=== PATIENT | male | born 1975 | race Two or more races ===

== ENCOUNTER 2020-07-30 15:52 | Outpatient (REF) | payer OTHER, SELFPAY ==
[2020-07-30 16:31] LABS: MANUAL DIFF FLAG NO
[2020-07-30 16:34] LABS: Basophils Percent Auto 0.4 % (0-2); Eosinophils Percent Auto 0.6 % (0-4); Hematocrit 40.9 % (42-52); Hemoglobin 14.4 g/dl (14.0-18.0); Imm Gran Abs Auto 0.02 X10*3/uL (0.00-0.03); Imm Gran Pct Auto 0.4 % (0.0-0.4); Lymphocytes Percent Auto 43.6 % (20-40); Mean Corpuscular HGB Conc 35.2 g/dl (31.0-36.0); Mean Corpuscular Hemoglobin 29.6 pg (27.0-33.0); Mean Corpuscular Volume 84.2 fL (80-98); Mean Platelet Volume 10.8 fL (9.4-12.4); Monocytes Absolute Auto 0.3 X10*3/uL (0.1-1.2); Monocytes Percent Auto 7.1 % (2-11); Neutrophils Absolute Auto 2.2 X10*3/uL (2.0-8.3); Neutrophils Percent Auto 47.9 % (45-73); Platelet Count 236 X10*3/uL (160-400); Red Blood Count 4.86 X10*6/uL (4.60-5.80); Red Cell Distribution Width 11.7 % (11.0-16.0); White Blood Count 4.7 X10*3/uL (4.8-10.8)
[2020-07-30 16:37] LABS: Glucose Urine UA >=1000 MG/DL (NEG); Leukocyte Esterase Urine NEG (NEG); Nitrite Urine NEG (NEG); PH 5.5 (5.0-8.0); Urine Blood TRACE (NEG); Urine Ketones 15 MG/DL (NEG); Urine Protein NEG (NEG-TRACE)
[2020-07-30 16:38] LABS: Appearance Urine CLEAR; Color Urine YELLOW
[2020-07-30 16:44] LABS: Bacteria Urine TRACE /LPF; RBC Urine 0-2 /HPF (0); Squamous Epithelial Cell Urine TRACE /LPF; WBC Urine 0 /HPF (0-4)
[2020-07-30 17:00] LABS: Estimated Average Glucose 295 mg/dL; Hemoglobin A1c % 11.9 %
[2020-07-30 17:10] LABS: Microalbum/Creatinine Ratio Ur 32.7 ug/mg cr
[2020-07-30 17:40] LABS: Alanine Aminotransferase 37 U/L (0-40); Albumin Level 4.1 g/dL (3.5-5.0); Alkaline Phosphatase 97 U/L (39-117); Anion Gap 16 (12-20); Aspartate Amino Transferase 17 U/L (5-37); Bilirubin Total 0.4 mg/dL (0.0-1.0); Blood Urea Nitrogen 17 mg/dL (9-16); Carbon Dioxide 22 mmol/L (22-29); Chloride 98 mmol/L (96-108); Estimated Glomerular Filt Rate > 60; Glucose Random 533 mg/dL (60-115); Lipase 40 U/L (8-78); Potassium 4.3 mmol/l (3.3-5.1); Sodium 132 mmol/L (135-145); Total Protein 7.7 g/dL (6.5-8.0)
== END 2020-07-30 15:53 | disposition home or self-care (01) ==
LOC: HO.LAB 15:52
PROVIDERS: PCP Internal Medicine; Visit Provider Internal Medicine
DX: R35.8 Other polyuria (principal); E11.9 Type 2 diabetes mellitus without complications; R10.9 Unspecified abdominal pain
CPT/HCPCS: 36415; 80053; 81001; 82043; 83036; 83690; 85025

== ENCOUNTER 2021-09-07 10:07 | Outpatient (REF) | payer OTHER, SELFPAY ==
[2021-09-07 10:38] LABS: MANUAL DIFF FLAG NO
[2021-09-07 10:59] LABS: Basophils Percent Auto 0.7 % (0-2); Eosinophils Percent Auto 0.5 % (0-4); Hematocrit 42.5 % (42.0-52.0); Hemoglobin 14.1 g/dl (14.0-18.0); Imm Gran Abs Auto 0.02 X10*3/uL (0.00-0.03); Imm Gran Pct Auto 0.3 % (0.0-0.4); Lymphocytes Absolute Auto 2.3 X10*3/uL (1.2-4.9); Lymphocytes Percent Auto 39.5 % (20-40); Mean Corpuscular HGB Conc 33.2 g/dl (31.0-36.0); Mean Corpuscular Hemoglobin 28.7 pg (27.0-33.0); Mean Corpuscular Volume 86.4 fL (80.0-98.0); Mean Platelet Volume 9.8 fL (9.4-12.4); Monocytes Absolute Auto 0.5 X10*3/uL (0.1-1.2); Monocytes Percent Auto 7.8 % (2-11); Neutrophils Percent Auto 51.2 % (45-73); Platelet Count 270 X10*3/uL (160-400); Red Blood Count 4.92 X10*6/uL (4.60-5.80); White Blood Count 5.8 X10*3/uL (4.8-10.8)
[2021-09-07 11:20] LABS: Alanine Aminotransferase 27 U/L (0-40); Albumin Level 4.1 g/dL (3.5-5.0); Alkaline Phosphatase 84 U/L (39-117); Anion Gap 12 (12-20); Aspartate Amino Transferase 17 U/L (5-37); Bilirubin Total 0.6 mg/dL (0.0-1.0); Blood Urea Nitrogen 13 mg/dL (9-16); Calcium 9.5 mg/dL (8.4-10.2); Carbon Dioxide 27 mmol/L (22-29); Chloride 103 mmol/L (96-108); Cholesterol 332 mg/dL; Estimated Glomerular Filt Rate > 60; Glucose Fasting 169 mg/dL (60-99); HDL Cholesterol 35 mg/dL; LDL Cholesterol Calculated 219 mg/dl; Potassium 4.4 mmol/L (3.3-5.1); Sodium 138 mmol/L (135-145); Triglycerides 394 mg/dL
[2021-09-07 11:34] LABS: Creatinine Urine 209.66 mg/dL; Microalbum/Creatinine Ratio Ur 9.5 ug/mg cr
[2021-09-07 11:37] LABS: Estimated Average Glucose 194 mg/dL; Hemoglobin A1c % 8.4 %
== END 2021-09-07 10:08 | disposition home or self-care (01) ==
LOC: HO.LAB 10:07
PROVIDERS: PCP Internal Medicine; Visit Provider Internal Medicine
DX: E11.9 Type 2 diabetes mellitus without complications (principal); E78.00 Pure hypercholesterolemia, unspecified
CPT/HCPCS: 36415; 80053; 80061; 82043; 83036; 85025

== ENCOUNTER 2024-06-20 10:21 | Outpatient (REF) | payer OTHER, SELFPAY ==
[2024-06-20 10:34] LABS: MANUAL DIFF FLAG NO
[2024-06-20 11:37] LABS: Basophils Absolute Auto 0.1 X10*3/uL (0.0-0.2); Basophils Percent Auto 0.8 % (0-2); Eosinophils Percent Auto 0.6 % (0-4); Hematocrit 40.5 % (42.0-52.0); Hemoglobin 13.6 g/dl (14.0-18.0); Imm Gran Abs Auto 0.02 X10*3/uL (0.00-0.03); Imm Gran Pct Auto 0.3 % (0.0-0.4); Lymphocytes Absolute Auto 2.6 X10*3/uL (1.2-4.9); Mean Corpuscular HGB Conc 33.6 g/dl (31.0-36.0); Mean Corpuscular Hemoglobin 29.2 pg (27.0-33.0); Mean Corpuscular Volume 87.1 fL (80.0-98.0); Mean Platelet Volume 10.4 fL (9.4-12.4); Monocytes Absolute Auto 0.4 X10*3/uL (0.1-1.2); Monocytes Percent Auto 5.8 % (2-11); Neutrophils Absolute Auto 3.5 x10*3/uL (2.0-8.3); Neutrophils Percent Auto 53.5 % (45-73); Platelet Count 306 X10*3/uL (160-400); Red Blood Count 4.65 X10*6/uL (4.60-5.80); Red Cell Distribution Width 12.2 % (11.0-16.0); White Blood Count 6.5 X10*3/uL (4.8-10.8)
[2024-06-20 12:04] LABS: Estimated Average Glucose 183 mg/dL; Hemoglobin A1C 222.5464 umol/L; Total Hemoglobin (HGBA1C) 3496.2879 umol/L
[2024-06-20 12:10] LABS: Albumin Level 4.1 g/dL (3.5-5.0); Alkaline Phosphatase 73 U/L (39-117); Anion Gap 11 (12-20); Aspartate Amino Transferase 23 U/L (5-37); Bilirubin Total 0.4 mg/dL (0.0-1.0); Blood Urea Nitrogen 14 mg/dL (9-16); Calcium 9.4 mg/dL (8.4-10.2); Carbon Dioxide 28 mmol/L (22-29); Chloride 102 mmol/L (96-108); Cholesterol 349 mg/dL (<200); Estimated Glomerular Filt Rate > 60; Glucose Fasting 133 mg/dL (60-99); HDL Cholesterol 44 mg/dL (>40); LDL Cholesterol Calculated 258 mg/dL (<100); Potassium 3.9 mmol/L (3.3-5.1); Sodium 137 mmol/L (135-145); Total Protein 7.2 g/dL (6.5-8.0); Triglycerides 239 mg/dL (<150)
[2024-06-20 12:14] LABS: Creatinine Urine 127.69 mg/dL; Microalbum/Creatinine Ratio Ur 12.5 ug/mg cr (<30)
[2024-06-20 12:26] LABS: Alanine Aminotransferase 26 U/L (0-40)
== END 2024-06-20 10:22 | disposition home or self-care (01) ==
LOC: HO.LAB 10:21
PROVIDERS: PCP Internal Medicine; Visit Provider Internal Medicine
DX: E11.9 Type 2 diabetes mellitus without complications (principal); E78.00 Pure hypercholesterolemia, unspecified
CPT/HCPCS: 36415; 80053; 80061; 82043; 82570; 83036; 85025

== ENCOUNTER 2024-08-04 10:56 | Outpatient (REF) | payer OTHER, SELFPAY ==
--- NOTE | ~2024-08-04 | XR_ITS ---
EXAMINATION: XR KNEE, RIGHT CLINICAL INFORMATION: M25.561 - Pain in right knee COMPARISON: None available. TECHNIQUE: Four views of the right knee. FINDINGS: Joint space narrowing involving the medial compartment without seated sclerosis and the medial tibial plateau and mediofemoral condyle. No acute cortical disruption or malalignment. No suprapatellar bursa joint effusion. There is a 9 mm blastic lesion in the medial proximal metaphysis of the right tibia. There is a well-corticated 4 mm calcification in the prepatellar soft tissues. XR/XR knee RT 3V IMPRESSION: Medial compartment osteoarthrosis without acute fracture or dislocation. Probable prior trauma, prepatellar soft tissues. Probable bony island, proximal metaphysis right tibia. Electronically signed by: Emery Urbina MD 08/10/2024 09:09 AM [facility]
== END 2024-08-04 10:57 | disposition home or self-care (01) ==
LOC: HO.HOSX 10:56
PROVIDERS: Visit Provider Orthopaedic Surgery
DX: M25.561 Pain in right knee (principal)
CPT/HCPCS: 73562

== ENCOUNTER 2024-08-04 14:52 | Outpatient (AMB) | payer OTHER, SELFPAY ==
--- NOTE | 2024-08-04 14:58 | A.OFFVIS_ITS ---
Intake Visit Reasons: Right knee pain and giving way Intake Note: Goyo is a 49 year old male who presents with complaints of progressively worsening right knee pain and giving way. He describes his pain as sharp and severe in nature. Most of the pain is along the medial aspect of his knee. The patient states that twisted his knee approximately 1 year ago. His symptoms have gotten worse since that time. He has failed the last 6 weeks of conservative treatment which has included physical therapy exercises, Tylenol and anti-inflammatory medicines. He states that his right knee will give out several times per day. He has also tried hot and cold compresses as well as pain patches which gave him minimal relief. He did try wearing a knee brace which seemed to aggravate his pain. 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 Physical Exam Const Other: Well-nourished well-developed very friendly male awake alert and oriented x3 in no acute distress Extrem Other: Bilateral lower extremity examination shows good capillary refill, no skin lesions noted, normal sensation light touch Right knee examination shows a minimal effusion, minimal crepitus with range of motion, tenderness along his medial joint line, positive Alex's test, no instability Results Reviewed Results Reviewed: Standing full weight-bearing x-rays of the patient's right knee show mild diffuse joint space narrowing, no acute bony abnormalities Assessment & Plan Assessment & Plan (1) Tear of medial meniscus of right knee: Code(s): S83.241A - Other tear of medial meniscus, current injury, right knee, initial encounter Category: Medical Plan Mr. Elliott Rodriguez presents with progressively worsening right knee pain and mechanical symptoms most likely due to a tear of his medial meniscus. Thus, I will send the patient for an MRI of his right knee for further evaluation. I will see him back once the MRI is completed to discuss the findings and treatment options. Feel free to call me at any time should questions regarding his orthopedic management arise. Thank you very much for asking me to see this very friendly gentleman. I spent 20 minutes in reviewing the patient's records and imaging studies, seeing the patient and documenting in the medical record. Orders: Orders MR knee RT wo con Today S83.241A - Other tear of medial meniscus, current injury, right knee, initial encounter XR knee RT 3V 08/04/24 M25.561 - Pain in right knee Coding Level of Care Code New Pt Level 3 (54080) Complex EM visit Add On G2211 Diagnoses Tear of medial meniscus of right knee S83.241A
== END 2024-08-04 15:21 | disposition home or self-care (01) ==
PROVIDERS: PCP Internal Medicine; Visit Provider Orthopaedic Surgery
DX: S83.241A Other tear of medial meniscus, current injury, right knee, initial encounter (principal)
CPT/HCPCS: 99203

== ENCOUNTER → 2024-08-27 09:48 | Outpatient (BNV) | payer OTHER, SELFPAY | PROVIDERS: PCP Internal Medicine; Visit Provider Radiology Diagnostic Radiology | DX: S83.241A Other tear of medial meniscus, current injury, right knee, initial encounter (principal) | CPT/HCPCS: 73721 ==

== ENCOUNTER 2024-08-27 09:49 | Outpatient (REF) | payer OTHER, SELFPAY ==
--- NOTE | ~2024-08-27 | MR_ITS ---
EXAMINATION: MRI RIGHT KNEE WITHOUT CONTRAST HISTORY: S83.241A - Other tear of medial meniscus, current injury, right knee COMPARISON: Correlation is made to plain films of the right knee dated 08/04/2024. TECHNIQUE: Coronal T1 and fat-suppressed proton density, sagittal proton density and fat-suppressed proton density, and axial fat suppressed T2 weighted MR images of the right knee were obtained. FINDINGS: Bone marrow: There is a hypointense focus in the proximal tibial metaphysis consistent with a bone island is noted on plain film. There is a small focus of marrow edema involving the bilateral patella with a defect of the overlying cartilage, consistent with osteochondral injury. Joint effusion: There is no significant suprapatellar joint effusion. Salcido's cyst: There is no Salcido's cyst. Articular cartilage: There is mild thinning of the cartilage involving the medial compartment. Muscles: There is increased T2 signal intensity within and expansion of the proximal tendon of the medial head of the gastrocnemius muscle, consistent with a sprain versus partial tear (series 10, images 8-10). Anterior cruciate ligament: Intact Posterior cruciate ligament: Intact Medial collateral ligament: Intact Lateral collateral ligament: Intact Medial meniscus: There is a radially oriented focus of increased T2 signal intensity in the body of the medial meniscus which contacts the superior and inferior joint surfaces, consistent with a radial tear. There is an additional horizontal tear of the posterior horn. This contacts the inferior joint surface. Lateral meniscus: Intact Popliteus tendon: Intact Quadriceps tendon: Intact Patellar tendon: Intact Patellar retinacula: Intact MR/MR knee RT wo con IMPRESSION: 1. Mild osteoarthritis of the medial compartment. 2. Osteochondral injury involving the lateral patellar facet. 3. Radial tear of the body of the medial meniscus. Horizontal tear of the posterior horn. 4. Sprain versus partial tear of the proximal tendon of the medial gastrocnemius muscle. Electronically signed by: Graham Gongora MD 08/29/2024 08:03 AM [facility]
== END 2024-08-27 09:50 | disposition home or self-care (01) ==
LOC: HO.MRI 09:49
PROVIDERS: PCP Internal Medicine; Visit Provider Orthopaedic Surgery
DX: S83.241A Other tear of medial meniscus, current injury, right knee, initial encounter (principal)
CPT/HCPCS: 73721

== ENCOUNTER 2024-09-06 14:25 | Outpatient (AMB) | payer OTHER, SELFPAY ==
--- NOTE | 2024-09-06 14:31 | MHC.OFFVIS ---
Vital Signs 09/06/24 14:36 Height 5 ft 11 in Weight 323 lb BMI 45.0 Intake Visit Reasons: OV-Right knee MRI reivew Intake Note: Goyo is a 49 year old male who presents today for a right knee MRI review. The patient describes his right knee pain as sharp in nature. He states that his right knee will give out several times per day. He has tried Tylenol and anti-inflammatory medicines which gave him minimal relief. He has done physical therapy exercises which aggravated his pain. 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 Physical Exam Vital Signs: BMI result Body Mass Index 45.0 Const Other: Well-nourished well-developed very friendly male awake alert and oriented x3 in no acute distress Extrem Other: Bilateral lower extremity examination shows good capillary refill, no skin lesions noted, normal sensation light touch Right knee examination shows a minimal effusion, mild crepitus with range of motion, tenderness along his medial joint line, positive Alex's test, no instability Results Reviewed Results Reviewed: Standing full weight-bearing x-rays of the patient's right knee show mild diffuse joint space narrowing, no acute bony abnormalities MRI of the patient's right knee shows mild diffuse degenerative changes as well as a medial meniscus tear Assessment & Plan Assessment & Plan (1) Tear of medial meniscus of right knee: Code(s): S83.241A - Other tear of medial meniscus, current injury, right knee, initial encounter Category: Medical Plan Mr. Elliott Rodriguez presents with progressively worsening right knee pain and mechanical symptoms due to a medial meniscus tear. I had a lengthy discussion with the patient regarding the treatment options. At this point he appears to be failing continued non operative treatments. He is considering undergoing right knee arthroscopic surgery later this year. He will contact my office to pick a surgery date if he chooses to do so. Surgery will most likely involve right knee arthroscopic partial medial meniscectomy. Feel free to call me at any time should questions regarding his orthopedic management arise. I spent 20 minutes in reviewing the patient's records and imaging studies, seeing the patient and documenting in the medical record. Coding Level of Care Code Est Pt Level 3 (00086) Complex EM visit Add On G2211 Diagnoses Tear of medial meniscus of right knee S83.241A
[2024-09-06 14:36] VITALS: BMI 45.0
== END 2024-09-06 14:44 | disposition home or self-care (01) ==
PROVIDERS: PCP Internal Medicine; Visit Provider Orthopaedic Surgery
DX: S83.241A Other tear of medial meniscus, current injury, right knee, initial encounter (principal)
CPT/HCPCS: 99213

== ENCOUNTER → 2024-09-06 14:25 | Outpatient (BNVA) | payer OTHER, SELFPAY | PROVIDERS: PCP Internal Medicine; Visit Provider Orthopaedic Surgery ==

== ENCOUNTER 2024-10-12 11:50 | Outpatient (REF) | payer OTHER, SELFPAY | END 2024-10-12 11:51 | disposition home or self-care (01) | LOC: HO.HOSX 11:50 | PROVIDERS: Visit Provider Orthopaedic Surgery | DX: Z13.89 Encounter for screening for other disorder (principal) ==

== ENCOUNTER 2024-10-13 08:24 | Outpatient (REF) | payer OTHER, SELFPAY ==
--- NOTE | ~2024-10-13 | XR_ITS ---
CLINICAL HISTORY: M25.511 - Pain in right shoulder 2 view right shoulder Comparison: None Findings: Bones intact. No dislocations. No significant arthritic change. No erosions. No radiopaque foreign body. IMPRESSION: 1. No acute findings This document has been electronically signed by: Raj Garcia MD on 10/14/2024 08:13:26
--- NOTE | ~2024-10-13 | XR_ITS ---
CLINICAL HISTORY: M25.512 - Pain in left shoulder 2 view left shoulder Comparison: None Findings: No fractures or dislocations. No significant loss of joint space or osteophytes. No erosions. No radiopaque foreign body. IMPRESSION: 1. No acute findings This document has been electronically signed by: Raj Garcia MD on 10/14/2024 08:13:20
== END 2024-10-13 08:25 | disposition home or self-care (01) ==
LOC: HO.HOSX 08:24
PROVIDERS: Visit Provider Orthopaedic Surgery
DX: M25.512 Pain in left shoulder (principal); M25.511 Pain in right shoulder; M25.312 Other instability, left shoulder
CPT/HCPCS: 73030

== ENCOUNTER 2024-10-13 09:27 | Outpatient (AMB) | payer OTHER, SELFPAY ==
[2024-10-13 09:31] VITALS: BMI 45.0
--- NOTE | 2024-10-13 09:31 | MHC.OFFVIS ---
Vital Signs 10/13/24 09:31 Height 5 ft 11 in Weight 323 lb BMI 45.0 Intake Visit Reasons: Newprob-B/L shoulder pain, Left shoulder pain and weakness Intake Note: Goyo is a 49 year right hand dominant male who presents with complaints of progressively worsening left shoulder pain and weakness. The patient also has intermittent pain in his right shoulder. He states that his right shoulder pain is tolerable to him. His left shoulder pain and weakness have gotten worse over the last year in spite of continued non operative treatments. He has failed the last 3 months of conservative treatment which has included physical therapy exercises, Tylenol and anti-inflammatory medicines as well as topical spray. The patient reports difficulty lifting his left hand above shoulder height. He has had injections in the past which gave him minimal relief. 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 Physical Exam Vital Signs: BMI result Body Mass Index 45.0 Const Other: Well-nourished well-developed very friendly male awake alert and oriented x3 in no acute distress Extrem Other: Bilateral upper extremity examination shows good capillary refill, no skin lesions noted, normal sensation light touch Left shoulder examination shows decreased range of motion when compared to his right shoulder, 4+ out of 5 strength with supraspinatus testing, positive impingement signs, tenderness over his acromioclavicular joint, no instability Left shoulder examination shows 4+ out of 5 strength with supraspinatus testing, positive impingement signs, tenderness over his acromioclavicular joint, no instability Results Reviewed Results Reviewed: X-rays of the patient's bilateral shoulder show severe acromioclavicular joint narrowing, type 3 acromion, no acute bony abnormalities Assessment & Plan Assessment & Plan (1) Rotator cuff insufficiency of left shoulder: Code(s): M25.312 - Other instability, left shoulder Category: Medical (2) Right shoulder pain: Code(s): M25.511 - Pain in right shoulder Category: Medical (3) Left shoulder pain: Code(s): M25.512 - Pain in left shoulder Category: Medical Plan Mr. Elliott Rodriguez presents with progressively worsening left shoulder pain weakness due to impingement syndrome and possible rotator cuff tearing. Thus, I will send the patient for an MRI of his left shoulder for further evaluation. I will see him back once to discuss the findings and treatment options. Feel free to call time should questions regarding his orthopedic management arise. I spent 20 minutes in reviewing the patient's records and imaging studies, seeing the patient and documenting in the medical record. Orders: Orders XR shoulder LT min 2V Today M25.512 - Pain in left shoulder XR shoulder RT min 2V Today M25.511 - Pain in right shoulder MR shoulder LT wo con Today M25.312 - Other instability, left shoulder Coding Level of Care Code Est Pt Level 3 (56040) Complex EM visit Add On G2211 Diagnoses Rotator cuff insufficiency of left shoulder M25.312 Right shoulder pain M25.511 Left shoulder pain M25.512
== END 2024-10-13 10:08 | disposition home or self-care (01) ==
LOC: HO.HOS 09:27
PROVIDERS: PCP Internal Medicine; Visit Provider Orthopaedic Surgery
DX: M25.312 Other instability, left shoulder (principal); M25.511 Pain in right shoulder; M25.512 Pain in left shoulder
CPT/HCPCS: 99213

== ENCOUNTER → 2024-10-13 09:37 | Outpatient (BNV) | payer OTHER, SELFPAY | PROVIDERS: Visit Provider Specialist | DX: M25.511 Pain in right shoulder (principal); M25.512 Pain in left shoulder | CPT/HCPCS: 73030 ==

== ENCOUNTER 2024-11-06 10:22 | Outpatient (REF) | payer OTHER, SELFPAY ==
--- NOTE | ~2024-11-06 | MR_ITS ---
CLINICAL HISTORY: M25.312 - Other instability, left shoulder MR left shoulder Comparison: DX - XR SHOULDER LT MIN 2V - 10/13/24 09:37 EDT Findings: No fracture or dislocation of the osseous structures. There is a mild amount of bone marrow edema at the acromioclavicular joint. There is mild acromioclavicular joint space narrowing and osteophytosis with subchondral cystic change. There is edema in the soft tissues adjacent to the acromioclavicular joint in between acromioclavicular joint and humeral head. No joint effusion or fluid in the subacromial/subdeltoid bursa. There is a small amount of fluid in the subcoracoid bursa. There is increased signal in the supraspinatus and subscapularis tendons without tear, retraction or muscular atrophy. Infraspinatus and teres minor are unremarkable. There is increased signal and irregularity in the superior labrum from anterior to posterior. The bicipital labral anchor is not well seen and may be torn. The long head of the biceps tendon is torn and retracted. The coracoacromial and coracohumeral ligaments are intact. Cutaneous and subcutaneous tissues are normal. The quadrilateral space is unremarkable. Impression: Bone marrow edema at the acromioclavicular joint could be secondary to degenerative change. There is also edema in the soft tissues adjacent to the acromioclavicular joint. Correlate clinically for history of trauma to this region. Small amount of fluid in the subcoracoid bursa. Supraspinatus and subscapularis tendinopathy. Increased signal and irregularity in the superior labrum from anterior to posterior may indicate a tear. Extension into the bicipital labral anchor could be considered. Tear of the long head of the biceps tendon with retraction. This document has been electronically signed by: Rachel Frost MD on 11/07/2024 22:10:15
== END 2024-11-06 10:23 | disposition home or self-care (01) ==
LOC: HO.MRI 10:22
PROVIDERS: Visit Provider Orthopaedic Surgery
DX: M25.312 Other instability, left shoulder (principal)
CPT/HCPCS: 73221

== ENCOUNTER → 2024-11-06 10:28 | Outpatient (BNV) | payer OTHER, SELFPAY | PROVIDERS: Visit Provider Radiology Diagnostic Radiology | DX: M25.312 Other instability, left shoulder (principal) | CPT/HCPCS: 73221 ==

== ENCOUNTER 2024-11-23 09:35 | Outpatient (AMB) | payer OTHER, SELFPAY ==
--- NOTE | 2024-11-23 09:48 | MHC.OFFVIS ---
Vital Signs 11/23/24 09:49 Height 5 ft 11 in Weight 323 lb BMI 45.0 Handedness Right Intake Visit Reasons: OV- Left shoulder MRI review, Right shoulder pain and weakness Intake Note: Goyo is a 49 year old right hand dominant male who presents with complaints of progressively worsening bilateral shoulder pains and weakness. The patient describes his pains as sharp in nature. His symptoms have gotten worse over the last year in spite of continued non operative treatments. At this point his right shoulder symptoms are worse than are his left. He reports weakness when lifting his right hand above shoulder height. He has failed the last 6 weeks of conservative treatment which has included physical therapy exercises, a home exercise program, Tylenol and anti-inflammatory medicines. He has had injections in the past which gave him minimal relief. 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 Physical Exam Vital Signs: BMI result Body Mass Index 45.0 Const Other: Well-nourished well-developed very friendly male awake alert and oriented x3 in no acute distress Extrem Other: Bilateral upper extremity examination shows good capillary refill, no skin lesions noted, normal sensation light touch Bilateral shoulder examination shows forward flexion to 160 degrees, external rotation to 40 degrees, internal rotation to 40 degrees, 4+ out of 5 strength with supraspinatus testing, positive impingement signs, tenderness over his acromioclavicular joint, no instability Results Reviewed Results Reviewed: X-rays of the patient's right shoulder taken previously show severe acromioclavicular joint narrowing, a type 3 acromion, no acute bony abnormalities MRI of the patient's left shoulder show severe acromioclavicular joint narrowing, a type 3 acromion, signal change within the supraspinatus tendon most likely due to adhesive capsulitis Assessment & Plan Assessment & Plan (1) Rotator cuff insufficiency of right shoulder: Code(s): M25.311 - Other instability, right shoulder Category: Medical Plan Mr. Elliott Rodriguez presents with left shoulder pain and stiffness due to impingement syndrome, acromioclavicular joint arthritis and adhesive capsulitis. He also has right shoulder pain and weakness due to impingement syndrome and possible rotator cuff tearing. Thus, I will send the patient for an MRI of his right shoulder for further evaluation. I will see him back once the MRI is completed to discuss the findings and treatment options. He will continue with his range of motion exercises in the meantime. I spent 21 minutes in reviewing the patient's records and imaging studies, seeing the patient and documenting in the medical record. Orders: Orders MR shoulder RT wo con Today M25.311 - Other instability, right shoulder Coding Level of Care Code Est Pt Level 3 (82493) Complex EM visit Add On G2211 Diagnoses Rotator cuff insufficiency of right shoulder M25.311
[2024-11-23 09:49] VITALS: BMI 45.0
== END 2024-11-23 10:08 | disposition home or self-care (01) ==
LOC: HO.HOS 09:36
PROVIDERS: Visit Provider Orthopaedic Surgery
DX: M25.311 Other instability, right shoulder (principal)
CPT/HCPCS: 99213

== ENCOUNTER → 2024-11-23 09:35 | Outpatient (BNVA) | payer OTHER, SELFPAY | PROVIDERS: Visit Provider Orthopaedic Surgery ==

== ENCOUNTER → 2024-11-30 07:46 | Outpatient (BNV) | payer OTHER, SELFPAY | PROVIDERS: Visit Provider Radiology Diagnostic Radiology | DX: M75.101 Unspecified rotator cuff tear or rupture of right shoulder, not specified as traumatic (principal); M75.21 Bicipital tendinitis, right shoulder | CPT/HCPCS: 73221 ==

== ENCOUNTER 2024-11-30 07:48 | Outpatient (REF) | payer OTHER, SELFPAY ==
--- NOTE | ~2024-11-30 | MR_ITS ---
CLINICAL HISTORY: M25.311 - Other instability, right shoulder MR right shoulder without gadolinium Comparison: None Findings: No acute fractures. No pathologic bone lesions. There are relatively severe degenerative changes of the acromioclavicular joint associated with bony productive changes. Type II acromion without downsloping. No fluid is seen within the subacromial subdeltoid bursa. There is a rim rent tear at the insertion of the supraspinatus tendon. There is tendinosis of the long head of the biceps and infraspinatus tendons. No tears of the glenoid labrum. IMPRESSION: 1. There is a small rim rent tear at the insertion of the supraspinatus tendon. 2. There is tendinosis of the long head of the biceps tendon and of the infraspinatus tendon. This document has been electronically signed by: Leonel Lewis MD on 11/30/2024 14:09:24
== END 2024-11-30 07:49 | disposition home or self-care (01) ==
LOC: HO.MRI 07:48
PROVIDERS: Visit Provider Orthopaedic Surgery
DX: M25.311 Other instability, right shoulder (principal)
CPT/HCPCS: 73221

== ENCOUNTER 2024-12-22 09:04 | Outpatient (AMB) | payer OTHER, SELFPAY ==
--- NOTE | 2024-12-22 09:09 | MHC.OFFVIS ---
Vital Signs 12/22/24 09:10 Height 5 ft 11 in Weight 323 lb BMI 45.0 Intake Visit Reasons: OV- Right shoulder MRI review Intake Note: Goyo is a 49 year old right hand dominant male who presents with complaints of progressively worsening bilateral shoulder pains and weakness, right greater than left. The patient describes his pains as sharp in nature. His symptoms have gotten worse over the last year in spite of continued non operative treatments. At this point his right shoulder symptoms are worse than are his left. He reports weakness when lifting his right hand above shoulder height. He has failed the last 6 weeks of conservative treatment which has included physical therapy exercises, a home exercise program, Tylenol and anti-inflammatory medicines. He has had injections in the past which gave him minimal relief. 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 Physical Exam Vital Signs: BMI result Body Mass Index 45.0 Const Other: Well-nourished well-developed very friendly male awake alert and oriented x3 in no acute distress Extrem Other: Bilateral upper extremity examination shows good capillary refill, no skin lesions noted, normal sensation light touch Right shoulder examination shows decreased range of motion when compared to his left shoulder, 4+ out of 5 strength with supraspinatus testing, positive impingement signs, tenderness over his acromioclavicular joint, no instability Results Reviewed Results Reviewed: MRI of the patient's right shoulder show severe acromioclavicular joint narrowing, a type 3 acromion, signal change within the supraspinatus tendon due to rotator cuff tendinosis versus a small tear Assessment & Plan Assessment & Plan (1) Impingement of right shoulder: Code(s): M25.811 - Other specified joint disorders, right shoulder Category: Medical Plan Mr. Elliott Rodriguez presents with bilateral shoulder pains, right greater than left, due to acromioclavicular joint arthritis, impingement syndrome and possible rotator cuff tearing. I had a lengthy discussion with the patient regarding the treatment options. At this point he has failed continued non operative treatments. The risks and benefits of right shoulder surgery were discussed at length with the patient. The patient wished to proceed. Surgery will involve right shoulder arthroscopic distal clavicle excision, right shoulder arthroscopic acromioplasty, possible right shoulder mini open rotator cuff repair showed a full-thickness tear be found at the time of his surgery. The patient will contact my office to pick a surgery date when he is ready to do so. He will continue with his activity modifications in the meantime. Feel free to call me at any time should questions regarding his orthopedic management arise. I spent 20 minutes in reviewing the patient's records and imaging studies, seeing the patient and documenting in the medical record. Coding Level of Care Code Est Pt Level 3 (62471) Complex EM visit Add On G2211 Diagnoses Impingement of right shoulder M25.811
[2024-12-22 09:10] VITALS: BMI 45.0
== END 2024-12-22 09:25 | disposition home or self-care (01) ==
LOC: HO.HOS 09:05
PROVIDERS: Visit Provider Orthopaedic Surgery
DX: M25.811 Other specified joint disorders, right shoulder (principal)
CPT/HCPCS: 99213

== ENCOUNTER 2025-04-20 18:59 | Emergency (ER) | payer OTHER, SELFPAY ==
--- NOTE | ~2025-04-20 | XR_ITS ---
CLINICAL HISTORY: congestion, cough 2 view chest x-ray Comparison: None provided Findings: The lungs are clear. Normal size heart. No acute fracture. IMPRESSION: 1. No acute findings. This document has been electronically signed by: Ramon Pedroza MD on 04/20/2025 20:43:32
[2025-04-20 19:26] VITALS: BP 124/73; PULSE 76; RESP 20; TEMP 36.6; O2SAT 96; BMI 42.1
--- NOTE | 2025-04-20 19:38 | ED_ITS ---
HPI - General Adult General Chief complaint: General Medical Stated complaint: coughing, difficulty breathing Time Seen by Provider: 04/20/25 23:34 Source: patient and family Mode of arrival: ambulatory Limitations: no limitations History of Present Illness ED Provider: Dr. Sushma Salguero HPI narrative: Patient comes to the emergency room complaining of cough since yesterday, sputum production, patient states that he has been coughing so much that his bilateral sides of the chest and back hurt only with coughing, denies fever chills. Also, patient reports an abrasion to the left salazar, occurred 1 week ago after falling. Related Data Home Medications ?Medication ?Instructions ?Recorded ?Confirmed glipizide 10 mg tablet, extended 10 mg PO BID 08/04/24 12/22/24 release 24 hr metformin 500 mg tablet 500 mg PO BID 08/04/2412/22 Previous Rx's ?Medication ?Instructions ?Recorded codeine 7.5 mg-guaifenesin 225 5 ml PO Q6H PRN cough # 473 mL 04/20/25 mg/5 mL oral liquid bacitracin 500 unit/gram topical 1 appl topical TID #2 8 grams 04/21/25 ointment Allergies Allergy/AdvReac Type Severity Reaction Status Date / Time No Known Allergies (No Known Allergy Verified 04/20/25 19:31 Allergies*) Review of Systems 2 Review of Systems: Constitutional : No Weight loss, No Fever, No Chills, No Night Sweats, No Fatigue, No Malaise ENT/Mouth : No Hearing loss, No Ear Pain, No Nasal Congestion, No Sinus Pain, No Hoarseness, No sore throat, No Rhinorrhea, No Swallowing Difficulty Eyes: No Eye Pain, No Swelling, No Redness, No Foreign Body, No Discharge, No Vision Changes Cardiovascular : No Chest Pain, No SOB, No Dyspnea on Exertion, No Orthopnea, No Edema, No Palpitations Respiratory : Complaining of productive cough, no wheezing, complaining of chest wall pain bilaterally and bilateral back pain only with coughing Gastrointestinal : No Nausea, No Vomiting, No Diarrhea, No Constipation, No abdominal Pain, No Hematochezia, No Melena Genitourinary : no irregular bleeding, No Dysuria, No Urinary Frequency, No Hematuria, No Urinary Incontinence, No Urgency, No Flank Pain, No Urinary Flow Changes, No Hesitancy Musculoskeletal : No joint pain, No Myalgias, No Joint Swelling Skin : No Skin Lesions, No rash Neuro : No Weakness, No Numbness, No Paresthesias, No Loss of Consciousness, No Dizziness, No Headache Psych : No Anxiety/Panic, No Depression, No SI/HI/AH/VH, No Social Issues, Heme/Lymph: No Bruising, No Bleeding,No Lymphadenopathy Endocrine : No Polyuria, No Polydipsia, No Temperature Intolerance [facility] Social History Social History Patient Tobacco Use Status: Current someday Tobacco user e-Cigarette/Vaping Use: Currently Using Advance Directives: No Advance Directives Information Provided: No Do you have a plan to hurt others: No Plan Current occupational status: employed 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 Oriented X3. No acute distress. Eyes: Pupils equal, round and reactive to light. ENT: Pharynx normal. Neck: Normal inspection. Neck supple. No lymph nodes noted. No crepitus CVS: Normal heart rate and rhythm. Pulses normal. Normal S1 and S2 Respiratory: No respiratory distress. Breath sounds normal. No Wheezing. No rales Abdomen: Soft and nontender. No rigidity. No distention. Skin: Skin warm and dry. Normal skin color. Normal skin turgor. Patient has a healing abrasion to the left salazar proximally 3 cm x 3 cm, no surrounding erythema Extremities: No lower extremity edema. No Lacerations. No Rash. Patient is able to flex and extend the left knee, no joint effusion, the patient is ambulatory Neuro: Oriented X 3. No motor deficit. No sensory deficit. Moving all extremities. No slurred speech. CN 2 through 12 grossly intact Psych: calm, cooperative, normal affect Vital Signs: Vital Signs - 24 hr 04/20/25 19:26 04/20/25 23:12 Temperature 97.8 F 98.4 F Pulse Rate 76 59 Respiratory Rate 20 20 Blood Pressure 124/73 123/75 Pulse Oximetry 96 99 Oxygen Delivery Method Room Air Room Air BMI result Body Mass Index 42.1 Course Course Course Narrative: This is an RME: Additional HPI, ROS, PE not included below will be deferred to primary provider. RME assessment and note performed by: Tali Hein PA-C This is a [id number] who presents to the ER with complaints of cough with green phlegm, chest pain, bilateral ear discomfort, and headache. He also reports that he fell while pushing a car several days ago. Plan: Labs, EKG, chest x-ray, viral swabs, further ER evaluation needed. Medical Decision Making Medical Decision Making [facility] Narrative: My interpretation of labs: No significant abnormality in patient's hematology or chemistry, LFTs and troponin within normal limits, serology negative for influenza and RSV Chest x-ray does not show any acute abnormality. Discussed the physical exam with the patient, respiratory stephen, patient likely has a viral URI. No signs of pneumonia, antibiotics are not indicated. Due to the musculoskeletal pain from coughing, I discussed with the patient that he can take a cough syrup with codeine, discussed with the patient to not drive or use machinery/go to work after taking this medication since it may make him feel drowsy. Patient agrees with plan. Also discussed with the patient to keep it away from children and pets. Patient is ambulatory, able to flex and extend the knee, no surrounding erythema or pain the eschar itself looks a little yellow, questionably a mild infection versus serosanguineous discharge, does not seem to be pus Differential Diagnosis Differential Diagnoses: The differential diagnosis associated with the presentation includes (URI infection, COVID, flu, bronchitis) Lab Data [facility] Lab Attestation statement: I reviewed the patient's lab results. 04/20/25 20:02 04/20/25 20:02 Labs: Lab Results 04/20/25 Range/Units 20:02 WBC 9.2 (4.8-10.8) X10*3/uL RBC 4.54 L (4.60-5.80) X10*6/uL Hgb 13.6 L (14.0-18.0) g/dl Hct 39.6 L (42.0-52.0) % MCV 87.2 (80.0-98.0) fL MCH 30.0 (27.0-33.0) pg MCHC 34.3 (31.0-36.0) g/dl RDW 12.1 (11.0-16.0) % Plt Count 268 (160-400) X10*3/uL MPV 9.8 (9.4-12.4) fL Immature Gran % (Auto) 0.3 (0.0-0.4) % Neut % (Auto) 66.6 (45-73) % Lymph % (Auto) 24.8 (20-40) % [place] % (Auto) 7.0 (2-11) % Eos % (Auto) 0.8 (0-4) % Baso % (Auto) 0.5 (0-2) % Lymph # (Auto) 2.3 (1.2-4.9) X10*3/uL [place] # (Auto) 0.7 (0.1-1.2) X10*3/uL Eos # (Auto) 0.1 (0.0-0.4) X10*3/uL Baso # (Auto) 0.1 (0.0-0.2) X10*3/uL Abs Immat Gran (auto) 0.03 (0.00-0.03) X10*3/uL Absolute Neuts (auto) 6.2 (2.0-8.3) x10*3/uL Absolute Nucleated RBC 0.000 (0.0-0.012) X10*3/uL Nucleated RBC % (auto) 0.0 (0.0-0.2) /100WBC Sodium 144 (135-145) mmol/L Potassium 5.2 H D (3.3-5.1) mmol/L Chloride 109 H (96-108) mmol/L Carbon Dioxide 29 (22-29) mmol/L Anion Gap 11 L (12-20) BUN 14 (9-16) mg/dL Creatinine 0.84 (0.5-1.4) mg/dL Estim Creat Clear Calc 150.4 Estimated GFR > 60 Random Glucose 139 H (60-115) mg/dL Calcium 9.3 (8.4-10.2) mg/dL Magnesium 2.2 (1.6-2.6) mg/dL Total Bilirubin 0.5 (0.0-1.0) mg/dL Direct Bilirubin 0.2 (0.0-0.5) mg/dL AST 24 (5-37) U/L ALT 33 (0-40) U/L Alkaline Phosphatase 94 (39-117) U/L Troponin I High Sens < 2.7 (<3.5-35.0) ng/L Total Protein 6.9 (6.5-8.0) g/dL Albumin 4.1 (3.5-5.0) g/dL COVID-19 (DAVID) Negative (Negative) COVID-19 Clin Com See Note Influenza Type A (BERNABE) Negative (Negative) Influenza Type B (BERNABE) Negative (Negative) Influenza A & B Note See Note Independent Interpretation I performed an independent interpretation of an: Plain X-Ray Radiology Impression Discussion of test interpretation with radiology: I have reviewed the radiologist's reading. Radiologist Impression: The lungs are clear. Normal size heart. No acute fracture. IMPRESSION: 1. No acute findings. Discharge Plan Discharge Clinical Impression: Abrasion, Bronchitis Patient Disposition: Home, Self-Care Instructions: Acute Bronchitis (ED), Abrasion (ED) Additional Instructions: Please follow-up with your primary care physician tomorrow. If you have any worsening or new symptoms, please return to the emergency room or call 911 Prescriptions: New codeine-guaifenesin 7.5-225 mg/5 mL liquid 5 ml PO Q6H PRN (Reason: cough) Qty: 473 0RF bacitracin 500 unit/gram ointment 1 appl topical TID Qty: 28 0RF No Action glipizide 10 mg tablet extended release 24hr 10 mg PO BID metformin 500 mg tablet 500 mg PO BID Stand Alone Forms: Work/School Release Print Language: Tajik
[2025-04-20 20:06] LABS: MANUAL DIFF FLAG NO
[2025-04-20 20:17] LABS: Hematocrit 39.6 % (42.0-52.0); Hemoglobin 13.6 g/dl (14.0-18.0); Imm Gran Abs Auto 0.03 X10*3/uL (0.00-0.03); Imm Gran Pct Auto 0.3 % (0.0-0.4); Lymphocytes Absolute Auto 2.3 X10*3/uL (1.2-4.9); Mean Corpuscular HGB Conc 34.3 g/dl (31.0-36.0); Mean Corpuscular Hemoglobin 30.0 pg (27.0-33.0); Mean Corpuscular Volume 87.2 fL (80.0-98.0); NRBC Abs Auto 0.000 X10*3/uL (0.0-0.012); NRBC Pct Auto 0.0 /100WBC (0.0-0.2); Platelet Count 268 X10*3/uL (160-400); Red Blood Count 4.54 X10*6/uL (4.60-5.80); White Blood Count 9.2 X10*3/uL (4.8-10.8)
[2025-04-20 20:21] LABS: COVID-19 Test Negative (Negative); IDNOW Serial# 6674DD1D
[2025-04-20 20:23] LABS: Alanine Aminotransferase 33 U/L (0-40); Albumin Level 4.1 g/dL (3.5-5.0); Alkaline Phosphatase 94 U/L (39-117); Anion Gap 11 (12-20); Aspartate Amino Transferase 24 U/L (5-37); Blood Urea Nitrogen 14 mg/dL (9-16); Calcium 9.3 mg/dL (8.4-10.2); Carbon Dioxide 29 mmol/L (22-29); Chloride 109 mmol/L (96-108); Creatinine Clr Calc Pharmacy 150.4; Estimated Glomerular Filt Rate > 60; IDNOW Serial# 08D9AD1C; Influenza B2 Negative (Negative); Magnesium 2.2 mg/dL (1.6-2.6); Potassium 5.2 mmol/L (3.3-5.1); Sodium 144 mmol/L (135-145); Total Protein 6.9 g/dL (6.5-8.0)
[2025-04-20 20:31] LABS: Troponin-I High Sensitivity < 2.7 ng/L (<3.5-35.0)
[2025-04-20 23:12] VITALS: BP 123/75; PULSE 59; RESP 20; TEMP 36.9; O2SAT 99
--- NOTE | 2025-04-20 23:40 | PC.NURSE ---
this rn assumed care of pt @ [id number], pt being seen by dr vanessa at this time
[2025-04-21 00:16] VITALS: BP 123/75; PULSE 59; RESP 20; TEMP 36.9; O2SAT 99
== END 2025-04-21 00:17 | disposition home or self-care (01) ==
PROVIDERS: Physician Assistant Medical; Emergency Provider Emergency Medicine
DX: S80.212A Abrasion, left knee, initial encounter (principal); R05.9 Cough, unspecified; R06.02 Shortness of breath; R07.89 Other chest pain; M54.50 Low back pain, unspecified; J40 Bronchitis, not specified as acute or chronic; R09.89 Other specified symptoms and signs involving the circulatory and respiratory systems; X58.XXXA Exposure to other specified factors, initial encounter; W19.XXXA Unspecified fall, initial encounter; Y93.9 Activity, unspecified; Y92.9 Unspecified place or not applicable; Y99.8 Other external cause status; Z79.899 Other long term (current) drug therapy; Z11.52 Encounter for screening for COVID-19
CPT/HCPCS: 71046; 80048; 80076; 83735; 84484; 85025; 87502; 87635; 99283; 99284

== ENCOUNTER → 2025-04-20 19:39 | Outpatient (BNV) | payer OTHER, SELFPAY | PROVIDERS: Visit Provider Radiology Diagnostic Radiology | DX: R05.9 Cough, unspecified (principal) | CPT/HCPCS: 71046 ==